=== PATIENT | female | born 1985 ===

== ENCOUNTER 2017-12-12 21:20 | Emergency (ER) | payer MEDICAID ==
[2017-12-12] MEDS ORDERED: Lactated Ringer's 1,000 ML IV STA (23:31)
[2017-12-12] MEDS ORDERED: Dextrose 5%/Lactated Ringer's 1,000 ML IV SCH (23:45)
--- NOTE | 2017-12-13 00:06 | ED PDOC ---
HPI: Abdomen Time Seen by Provider: 12/12/17 23:23 Chief Complaint (Nursing): Abdominal Pain Chief Complaint (Provider): abdominal pain History Per: Patient History/Exam Limitations: no limitations Onset/Duration Of Symptoms: Days (2 weeks) Current Symptoms Are (Timing): Still Present Quality Of Discomfort: "Pain" Additional Complaint(s): 32 year old female with a history of ectopic requiring surgery presents to the ED complaining abdominal pain onset two weeks pain. Reports of nausea and non-bilious and non-bloody vomiting two days ago. Also she has not had regular menstrual period since September (cannot recall the exact date) and had two days of spotting since October. test at home confirmed she is . She has an appointment with Dr. Oliva, her THERAPEUTIC RECREATION DIRECTOR but she has not visited him. The cramping has worsen and she is unable to tolerate food or liquid with associated symptoms of light headedness and feels like passing-out. Denies vaginal discharge or bleeding Of note, patient is G5, P2, and 1 stillborn PMD: Provider TBD Abnormal Vaginal Bleeding: Yes : 5 Para: 2 Past Medical History Reviewed: Historical Data, Nursing Documentation, Vital Signs Vital Signs: Last Vital Signs Temp 98.9 F 12/13/17 03:33 Pulse 73 12/13/17 03:33 Resp 16 12/13/17 03:33 BP 140/67 12/13/17 03:33 Pulse Ox 100 12/13/17 04:13 - Medical History PMH: Anxiety, Asthma Denies: Chronic Kidney Disease - Surgical History Surgical History: Cholecystectomy - Family History Family History: States: Hypertension - Home Medications Home Medications: Ambulatory Orders Medication Instructions Recorded Nitrofurantoin Macrocrystals 100 mg PO BID #14 cap 10/28/14 [Macrobid] Doxylamine/Pyridoxine HCl (B6) 1 each PO DAILY #20 tablet. 12/13/17 [Klarissa Arrington 10-10 mg Tablet] Ondansetron [Zofran Odt] 4 mg PO TID PRN #8 odt 12/13/17 - Allergies Allergies/Adverse Reactions: Allergies Allergy/AdvReac Type Severity Reaction Status Date / Time No Known Allergies Allergy Verified 10/29/14 09:42 Review of Systems ROS Statement: Except As Marked, All Systems Reviewed And Found Negative (As per HPI, otherwise negative) Gastrointestinal: Positive for: Nausea, Vomiting (NBNB), Abdominal Pain ( cramping). Negative for: Other (tolerate food or liquid) Neurological: Positive for: Other (light headedness ) Physical Exam - Reviewed Nursing Documentation Reviewed: Yes Vital Signs Reviewed: Yes - Physical Exam Gastrointestinal/Abdominal: Positive for: Tenderness (suprapubic). Negative for : Normal Exam (acute gastrointial distress; actively vomitng in ER) - Laboratory Results Result Diagrams: 12/13/17 00:45 12/13/17 00:45 - ECG O2 Sat by Pulse Oximetry: 100 (RA) Pulse Ox Interpretation: Normal Medical Decision Making Medical Decision Making: Time: 2329 Initial Impression: hyperemesis gravidarum Differential Diagnosis includes but is not limited to: ectopic , dehydration, electrolytes abnormalities Initial Plan: --BETA-HCG, Quantitative --CMP --Lipase --Magnesium --Phosphorous --ED Urine --ED Urine dipstick --CBC w/ differential --Dextrose 5%/ Lactated Ringers 1,000ml IV 100 mls/hr --Lactated Ringers 1,000mls/hr --Pepcid 20mg --Reglan 10mg --Glucose, Blood, POC --OB Transvaginal [US] --Reevaluation Time: 0000 Patient will be signed out by me to Dr. Vega pending pending US and reevaluation. Scribe Attestation: Documented by Rachel Obrien, acting as a scribe for Tierney Hahn MD Provider Scribe Attestation: All medical record entries made by the Scribe were at my direction and personally dictated by me. I have reviewed the chart and agree that the record accurately reflects my personal performance of the history, physical exam, medical decision making, and the department course for this patient. I have also personally directed, reviewed, and agree with the discharge instructions and disposition. Disposition - Clinical Impression Clinical Impression: Hyperemesis, Abdominal pain during - Disposition Disposition: Transfer of Care Disposition Time: 00:00 Condition: IMPROVED Prescriptions: Doxylamine/Pyridoxine HCl (B6) [Klarissa Arrington 10-10 mg Tablet] 1 each PO DAILY # 20 tablet. Ondansetron [Zofran Odt] 4 mg PO TID PRN #8 odt PRN Reason: Nausea/Vomiting Instructions: Nausea and Vomiting of Forms: [facility] [employer] [facility] (Slovenian) Patient Signed Over To: Sebastian Vega (pending US and reevaluation)
--- NOTE | 2017-12-13 00:53 | ED PDOC ---
- Laboratory Results Result Diagrams: 12/13/17 00:45 12/13/17 00:45 - ECG O2 Sat by Pulse Oximetry: 100 (RA) Pulse Ox Interpretation: Normal Medical Decision Making Medical Decision Making: Time: Patient will be signed out to me by Dr. Hahn pending US and reevaluation Time: 55 EXAM: US , Transvaginal FINDINGS: Gestation: There is a intrauterine gestational sac present with thick torres. A yolk sac is visible measuring 3.8 mm. No pole is clearly visible No heartbeat was documented. The gestational sac measures 1.4 cm 5 weeks 5 days gestational age. Clinical GA 7 weeks CYNDI 07/31/2018 Placenta/amniotic fluid: Cannot be adequately evaluated due to the early gestational age. Uterus/cervix: Unremarkable. No myometrial mass. The cervix measures 4.1 cm the cervical os is closed. Ovaries: Unremarkable. No mass. RIGHT ovary measures 3.7 cm x 4.4 cm x 3 cm. complex cyst is seen 2.7 cm x 2.6 cm a 2.8 cm in Free fluid: No free fluid. IMPRESSION: . 1. Intrauterine gestational sac no clearly visible pole 2. Gestational age 5 weeks 5 day CYNDI 08/09/2018 3. Complex RIGHT ovarian cyst. 4. Negative LEFT ovary. 5. Negative uterus PAtietn reported feeling "much better", was able to tolerate PO. Advised patient to f/u w/ OB as soon as possible. Return precautions given. Diclegis prescription given. Scribe Attestation: Documented by Rcahel Obrien, acting as a scribe for Sebastian Vega MD Provider Scribe Attestation: All medical record entries made by the Scribe were at my direction and personally dictated by me. I have reviewed the chart and agree that the record accurately reflects my personal performance of the history, physical exam, medical decision making, and the department course for this patient. I have also personally directed, reviewed, and agree with the discharge instructions and disposition. Disposition - Clinical Impression Clinical Impression: Hyperemesis, Abdominal pain during - POA Present On Arrival: None - Disposition [facility] Rosa Elena Vasquez MD [Primary Care Provider] - Disposition: Routine/Home Disposition Time: 01:00 Condition: IMPROVED Prescriptions: Doxylamine/Pyridoxine HCl (B6) [Klarissa Arrington 10-10 mg Tablet] 1 each PO DAILY # 20 tablet. Instructions: Nausea and Vomiting of Forms: [facility] (Armenian)
[2017-12-13 00:54] LABS: BASO # 0.1 K/uL (0.0-0.2); BASO % 0.7 % (0.0-2.0); EOS % 0.1 % (0.0-4.0); HEMOGLOBIN 13.6 g/dL (12.0-16.0); LYMPH # 2.4 K/uL (1.0-4.3); LYMPH % 23.1 % (20.0-40.0); MEAN CELL VOLUME 84.3 fl (81.0-99.0); MEAN CORPUSCULAR HGB CONC 34.4 g/dL (33.0-37.0); MEAN PLATELET VOLUME 9.4 fl (7.2-11.7); MONO # 0.6 K/uL (0.0-0.8); NEUT # 7.5 K/uL (1.8-7.0); NEUT % 70.1 % (50.0-75.0); NRBC % 0.1 % (0.0-0.0); RBC 4.69 Mil/uL (3.80-5.20); RED CELL DISTRIBUTION WIDTH 13.4 % (11.5-14.5); WHITE BLOOD COUNT 10.6 K/uL (4.8-10.8)
[2017-12-13 01:04] LABS: ALB/GLOB RATIO 1.2 (1.0-2.1); ALBUMIN 4.2 g/dL (3.5-5.0); ALT/SGPT 50 U/L (9-52); AST/SGOT 23 U/L (14-36); BLOOD UREA NITROGEN 7 mg/dl (7-17); CALCIUM 9.3 mg/dL (8.4-10.2); GFR AFRICAN-AMERICAN > 60; GFR NON-AFRICAN AMERICAN > 60; LIPASE 66 U/L (23-300)
[2017-12-13 03:34] VITALS: BP 140/67; PULSE 73; RESP 16; TEMP 98.9
[2017-12-13 04:13] VITALS: O2SAT 100
--- NOTE | 2017-12-13 11:10 | US ---
PROCEDURE: First trimester ultrasound HISTORY: Pelvic pain, history of ectopic. LMP 10/24/2017. Beta HCG results: Unknown. COMPARISON: None available. TECHNIQUE: Standard protocol for this study/examination. FINDINGS: LMP: 10/24/2017 Prior examinations from the current : TECHNIQUE: Real-time 2D imaging, duplex and color Doppler. FINDINGS: No pole identified. Gestational age 5 weeks 5 days based on gestational sac measurement 1.45 cm Gestational age derived from LMP: 7 weeks CYNDI based on LMP: 07/31/2018 CYNDI based on biometry: 08/26/2018 Gestational concordance documented Yolk sac identified Uterus: Unremarkable. No Cervical abnormalities: Negative examination for cervical dilatation or effacement. Closed cervix measuring 4.17 cm Subchorionic hemorrhage: None UTERUS: 5.1 x 6.1 x 9.7 cm. ADNEXA: Right: 3 x 3.7 x 4.5 cm. Simple cyst 2.7 x 2.6 x 2.9 cm. Normal Doppler arterial waveform documented. Left: 1.3 x 1.9 x 2.6 cm. Normal Doppler arterial waveform documented Fluid in the cul-de-sac: None IMPRESSION: Early intrauterine gestation 5 weeks 5 days based on well-formed gestational sac diameter 1.45 cm.
== END 2017-12-13 03:41 | disposition home or self-care (01) ==
LOC: H.ER 21:20
DX: O21.0 Mild hyperemesis gravidarum (principal); O26.891 Other specified pregnancy related conditions, first trimester
CPT/HCPCS: 76817; 80053; 81025; 82948; 83690; 83735; 84100; 84702; 85025; 96361; 96374; 99284; J2765; J7120

== ENCOUNTER 2018-12-20 09:48 | Emergency (ER) | payer MEDICAID ==
[2018-12-20 09:54] VITALS: BMI 31.3
[2018-12-20] MEDS ORDERED: Sodium Chloride 0.9% 1,000 ML IV STA (10:18)
--- NOTE | 2018-12-20 10:31 | ED PDOC ---
HPI: Abdomen Time Seen by Provider: 12/20/18 09:57 Chief Complaint (Nursing): GI Problem Chief Complaint (Provider): GI Problem History Per: Patient History/Exam Limitations: no limitations Onset/Duration Of Symptoms: Days (x3) Current Symptoms Are (Timing): Still Present Additional Complaint(s): 33 year old female presents to the emergency department with a complaint of multiple episodes of vomiting associated with left-sided, lower abdominal cramping radiating to her back, headache, and some vaginal spotting for the past 3 days. Patient states she is currently but unsure how far along she is. LMP: early 11/2018. Otherwise, she denies chest pain, shortness of breath, leg pain or swelling. PCP: Dr. Rosa Elena Vasquez HOME ASSESSMENT NURSE: Dr. Yahir Singleton Past Medical History Reviewed: Historical Data, Nursing Documentation, Vital Signs Vital Signs: Last Vital Signs Temp 98.6 F 12/20/18 09:54 Pulse 81 12/20/18 09:54 Resp 17 12/20/18 09:54 BP 130/84 12/20/18 09:54 Pulse Ox 98 12/20/18 10:00 - Medical History PMH: Anxiety, Asthma Denies: Chronic Kidney Disease - Surgical History Surgical History: Cholecystectomy - Family History Family History: States: Hypertension - Home Medications Home Medications: Ambulatory Orders Medication Instructions Recorded Nitrofurantoin Macrocrystals 100 mg PO BID #14 cap 10/28/14 [Macrobid] Doxylamine/Pyridoxine HCl (B6) 1 each PO DAILY #20 tablet. 12/13/17 [Klarissa Arrington 10-10 mg Tablet] Ondansetron [Zofran Odt] 4 mg PO TID PRN #8 odt 12/13/17 - Allergies Allergies/Adverse Reactions: Allergies Allergy/AdvReac Type Severity Reaction Status Date / Time No Known Allergies Allergy Verified 12/20/18 09:59 Review of Systems ROS Statement: Except As Marked, All Systems Reviewed And Found Negative Cardiovascular: Negative for: Chest Pain Respiratory: Negative for: Shortness of Breath Gastrointestinal: Positive for: Vomiting, Abdominal Pain (lower left cramping) Genitourinary Female: Positive for: Vaginal Bleeding (spotting) Musculoskeletal: Positive for: Back Pain (lower left). Negative for: Leg Pain (or swelling) Neurological: Positive for: Headache Physical Exam - Reviewed Nursing Documentation Reviewed: Yes Vital Signs Reviewed: Yes - Physical Exam Appears: Positive for: No Acute Distress Head Exam: Positive for: ATRAUMATIC, NORMAL INSPECTION, NORMOCEPHALIC Skin: Positive for: Normal Color Eye Exam: Positive for: Normal appearance ENT: Positive for: Normal ENT Inspection Neck: Positive for: Normal Cardiovascular/Chest: Positive for: Regular Rate, Rhythm Respiratory: Positive for: Normal Breath Sounds. Negative for: Respiratory Distress Gastrointestinal/Abdominal: Positive for: Soft, Tenderness (across lower pelvis mildly) Back: Positive for: Vertebral Tenderness (lower left). Negative for: Decreased ROM Extremity: Positive for: Normal ROM (upper/lower) Neurological/Psych: Positive for: Awake, Alert, Normal Tone, Oriented. Negative for: Motor/Sensory Deficits - Laboratory Results Result Diagrams: 12/20/18 10:20 12/20/18 10:20 Lab Results: no acute - ECG O2 Sat by Pulse Oximetry: 98 (RA) Pulse Ox Interpretation: Normal - CT Scan/US US Other Rad Studies (CT/US): Read By Radiologist Other Rad Interpretation: SLIUP - Progress ED Course And Treament: 1348: Stable. AAOx3. Pain free. Tolerated PO. FU with pcp. Medical Decision Making Medical Decision Making: Time: 1005 Initial Plan: * Labs including BETA-HCG * IV fluids * Reglan IV * Tylenol PO * US OB transvaginal ------- Scribe Attestation: Documented by Eli Esparza, acting as a scribe for Tony Avila MD. Provider Scribe Attestation: All medical record entries made by the Scribe were at my direction and personally dictated by me. I have reviewed the chart and agree that the record accurately reflects my personal performance of the history, physical exam, medical decision making, and the department course for this patient. I have also personally directed, reviewed, and agree with the discharge instructions and disposition. Disposition - Clinical Impression Clinical Impression: Threatened , Hyperemesis gravidarum - Patient ED Disposition Is Patient to be Admitted: No Counseled Patient/Family Regarding: Studies Performed, Diagnosis, Need For Followup - Disposition Referrals: Yahir Singleton MD [Staff Provider] - 12/22/18 Disposition: Routine/Home Disposition Time: 13:49 Condition: STABLE Additional Instructions: Return if not better in 3 days. Instructions: Threatened Miscarriage, Hyperemesis Gravidarum Forms: [employer] (Serbian)
[2018-12-20 10:42] LABS: BASO % 0.6 % (0.0-2.0); EOS % 0.5 % (0.0-4.0); HEMOGLOBIN 13.1 g/dL (12.0-16.0); LYMPH % 27.8 % (20.0-40.0); MEAN CELL VOLUME 86.4 fl (81.0-99.0); MEAN CORPUSCULAR HEMOGLOBIN 28.6 pg (27.0-31.0); MEAN CORPUSCULAR HGB CONC 33.1 g/dL (33.0-37.0); MEAN PLATELET VOLUME 10.6 fl (7.2-11.7); MONO # 0.7 K/uL (0.0-0.8); NEUT # 4.5 K/uL (1.8-7.0); NEUT % 62.1 % (50.0-75.0); NRBC % 0.1 % (0.0-0.0); RBC 4.59 Mil/uL (3.80-5.20); RED CELL DISTRIBUTION WIDTH 12.8 % (11.5-14.5); WHITE BLOOD COUNT 7.2 K/uL (4.8-10.8)
[2018-12-20 10:49] LABS: ALB/GLOB RATIO 1.4 (1.0-2.1); ALBUMIN 4.2 g/dL (3.5-5.0); ALT/SGPT 38 U/L (9-52); AST/SGOT 29 U/L (14-36); BLOOD UREA NITROGEN 7 mg/dl (7-17); CALCIUM 9.2 mg/dL (8.4-10.2); GFR NON-AFRICAN AMERICAN > 60
[2018-12-20 11:06] LABS: SQUAMOUS EPITHIAL 6 /hpf (0-5); URINE BACTERIA FEW (<OCC); URINE BILIRUBIN NEGATIVE (NEGATIVE); URINE BLOOD NEGATIVE (NEGATIVE); URINE CLARITY SLIGHTY-CLOUDY (Clear); URINE COLOR YELLOW (YELLOW); URINE GLUCOSE (UA) NEG (NEGATIVE); URINE LEUKOCYTE ESTERASE MOD Leu/uL (Negative); URINE PROTEIN NEGATIVE (NEGATIVE); URINE UROBILINOGEN 0.2-1.0 mg/dL (0.2-1.0)
[2018-12-20 11:25] LABS: SQUAMOUS EPITHIAL 4 /hpf (0-5); URINE BACTERIA OCC (<OCC); URINE BILIRUBIN NEGATIVE (NEGATIVE); URINE BLOOD NEGATIVE (NEGATIVE); URINE CLARITY SLIGHTY-CLOUDY (Clear); URINE COLOR YELLOW (YELLOW); URINE GLUCOSE (UA) NEG (NEGATIVE); URINE LEUKOCYTE ESTERASE SMALL Leu/uL (Negative); URINE PROTEIN NEGATIVE (NEGATIVE); URINE UROBILINOGEN 0.2-1.0 mg/dL (0.2-1.0)
--- NOTE | 2018-12-20 13:12 | US ---
Date of service: 12/20/2018 PROCEDURE: OB Pelvic Ultrasound HISTORY: preg and pain LMP: 11/08/2018 COMPARISON: No relevant prior imaging. FINDINGS: UTERUS: Gestational sac: Single intrauterine gestation. Measures 1.8 cm compatible with estimated gestational age of 6 weeks, 1 day Yolk sac: Measures 0.3 cm pole: [place]-rump length measures 0.5 cm compatible with estimated gestational age of 6 weeks, 2 days Heart rate: 117 bpm. age (Ultrasound estimated): 6 weeks, 2 days Kate-gestational hemorrhage: None. Date of delivery (Ultrasound estimated) : 08/13/2019 Uterus measures 8.6 x 5.2 x 6.9 cm. Normal in size and appearance. Anterior subserosal fibroid measuring 1.0 x 0.7 x 0.9 cm. CERVIX: Measures 3.8 cm. Long and closed. No cervical abnormality seen. RIGHT OVARY: Measures 3.6 x 3.2 x 2.5 cm. Corpus luteum measuring 2.5 x 2.3 x 2.5 cm. Normal flow. LEFT OVARY: Measures 2.6 x 2.3 x 1.4 cm. No solid mass. Normal flow. FREE FLUID: None. OTHER FINDINGS: None. IMPRESSION: Single live intrauterine gestation with average ultrasound age of 6 weeks, 2 days. heart rate 117 beats per minute. Cervix long and closed.
[2018-12-20 14:20] VITALS: BP 128/72; PULSE 74; RESP 16; TEMP 98.3; O2SAT 100
== END 2018-12-20 14:10 | disposition home or self-care (01) ==
LOC: H.ER 09:48
DX: O20.0 Threatened abortion (principal); O21.0 Mild hyperemesis gravidarum; J45.909 Unspecified asthma, uncomplicated
CPT/HCPCS: 76817; 80053; 81003; 81025; 84702; 85025; 86850; 86900; 96374; 99284; J2765; J7030